=== PATIENT | female | born 1950 | race Caucasian/White ===

== ENCOUNTER → 2022-12-18 10:29 | Outpatient (BNVA) | payer MEDICARE, SELFPAY | PROVIDERS: Family Provider Nurse Practitioner Family; PCP Nurse Practitioner; Visit Provider Nurse Practitioner | DX: E55.9 Vitamin D deficiency, unspecified (principal); Z13.6 Encounter for screening for cardiovascular disorders; M25.50 Pain in unspecified joint; R00.0 Tachycardia, unspecified | CPT/HCPCS: 80053; 80061; 81000; 82306; 82607; 83550; 84443; 85025 ==